=== PATIENT | male | born 1970 | race Caucasian/White ===

== ENCOUNTER 2019-06-30 16:43 | Emergency (ER) | payer OTHER ==
[2019-06-30 17:09] VITALS: BMI 24.2
--- NOTE | 2019-06-30 17:27 | PDOC ---
History of Present Illness - General Chief Complaint: Redness To Affected Area Stated Complaint: INFECTED ABSCESS Time Seen by Provider: 06/30/19 17:01 - History of Present Illness Initial Comments: Mr. Vásquez is a 49 y/o male with PMH significant for ETOH and cocaine abuse, presenting today with swelling and redness over the right lateral wrist that started 3 days ago. Reports that his last drink was this morning and he presented to detox, where the redness and swelling were noted and he was sent to the ED. Denies fever/chills. Denies shortness of breath/chest pain. Denies abdominal pain. Denies urinary symptoms. Denies diarrhea. Reports that he was bitten by a spider several weeks ago and believes that is what caused it. Denies IV drug use. Past History - Past Medical History Allergies/Adverse Reactions: Allergies Allergy/AdvReac Type Severity Reaction Status Date / Time No Known Allergies Allergy Verified 06/30/19 13:32 Home Medications: Ambulatory Orders Methadone [Dolophine -] 90 mg PO DAILY 06/30/19 Anemia: No Asthma: No Cancer: No Cardiac Disorders: No CVA: No COPD: No CHF: No Dementia: No Diabetes: No GI Disorders: No Disorders: No HTN: No Hypercholesterolemia: No Kidney Stones: No Liver Disease: No Seizures: No Thyroid Disease: No - Surgical History Abdominal Surgery: No Appendectomy: No Cardiac Surgery: No Cholecystectomy: No Lung Surgery: No Neurologic Surgery: No Orthopedic Surgery: Yes (fx of right fenur in [address] [facility]) - Reproductive History Testicular Surgery: No - Psycho Social/Smoking Cessation Hx Smoking History: Never smoked Have you smoked in the past 12 months: No Number of Cigarettes Smoked Daily: 20 Information on smoking cessation initiated: No 'Breaking Loose' booklet given: 02/06/12 Hx Alcohol Use: No Drug/Substance Use Hx: No Substance Use Type: Alcohol, Cocaine, Marijuana, Tranquilizers Hx Substance Use Treatment: Yes Review of Systems - Review of Systems Comments:: GENERAL/CONSTITUTIONAL: No fever or chills. No weakness._ HEAD, EYES, EARS, NOSE AND THROAT: No change in vision. No change in hearing. No sore throat._ CARDIOVASCULAR: No chest pain or shortness of breath_ RESPIRATORY: Denies cough, hemoptysis_ GASTROINTESTINAL: No nausea, vomiting, diarrhea or constipation._ GENITOURINARY: No dysuria, frequency, or change in urination._ MUSCULOSKELETAL: Reports swelling over right lateral wrist. No neck or back pain._ SKIN: Reports redness over right lateral wrist. NEUROLOGIC: No headache, vertigo, loss of consciousness, or change in strength/ sensation._ ENDOCRINE: No increased thirst. No abnormal weight change_ HEMATOLOGIC/LYMPHATIC: No anemia, easy bleeding, or history of blood clots._ ALLERGIC/IMMUNOLOGIC: No hives or skin allergy._ *Physical Exam - Vital Signs Last Vital Signs Temp Pulse Resp BP Pulse Ox 98.4 F 60 16 110/57 L 98 06/30/19 16:45 06/30/19 16:45 06/30/19 16:45 06/30/19 16:45 06/30/19 16:45 - Physical Exam GENERAL: Awake, alert, and oriented to person/place/time, in no acute distress_ HEAD: No signs of trauma, normocephalic, atraumatic _ EYES: PERRLA, EOMI, sclera anicteric, conjunctiva clear_ ENT: Hearing grossly normal, nares patent, oropharynx clear without exudates. No uvular deviation. Moist mucosa_ NECK: Normal ROM, supple, no lymphadenopathy, JVD, or masses_ LUNGS: No distress, speaks in full sentences, clear to auscultation bilaterally _ HEART: Regular rate and rhythm, normal S1 and S2, no murmurs appreciated, peripheral pulses normal and equal bilaterally._ ABDOMEN: Soft, nontender, normoactive bowel sounds. No guarding, no rebound. No masses_ EXTREMITIES: 3cm x 2cm area of induration and swelling over the right lateral aspect of wrist with overlying skin redness. No streaking. No bruising. Minimal purulent discharge. Pulses 2+ distally. NEUROLOGICAL: Cranial nerves II through XII grossly intact. Normal speech, normal gait, no focal sensorimotor deficits _ SKIN: Warm, Dry, normal turgor, no rashes. Procedures - Incision and Drainage Volume(ml): 1 Attempts: 2 Progress: Verbal consent were obtained. The indication for the procedure was clinical suspicion for an abscess. Confirmation with an ultrasound was performed. The region was anesthetized with 3 cc of 1% lidocaine. The most fluctuant portion of the abscess was incised with an 11 blade scalpel. The abscess cavity of explored and evacuated. Additionally, a 18 gauge needle was used to drain a fluid pocket, 1 cc of purulent bloody fluid was aspirated. The incision was covered with a clean gauze dressing. Patient tolerated the procedure well. Medical Decision Making - Medical Decision Making 06/30/19 17:20 49M ETOH/cocaine abuse sent in from detox for swelling and redness over right lateral wrist. -I&D 06/30/19 19:30 I&D performed. See procedure note. 05/31/19 20:50 Patient given bactrim. Plan to d/c to [facility] for detox, with Bactrim DS 1 tab BID for 14 days. Patient verbalized understanding and agreement with plan. All questions answered. Discharge - Discharge Information Problems reviewed: Yes Clinical Impression/Diagnosis: Abscess Cellulitis Qualifiers: Site of cellulitis: extremity Site of cellulitis of extremity: upper extremity Laterality: right Qualified Code(s): L03.113 - Cellulitis of right upper limb Condition: Stable Disposition: HOME - Admission No - Follow up/Referral - Patient Discharge Instructions Additional Instructions: Please take Bactrim 1 tab twice per day (total of 2 tabs per day) for 14 days. Please follow up with [facility]. If you experience any new, worsening, or concerning symptoms, including increased swelling or spreading redness of the right wrist, fever, chills, nausea, vomiting, or any other concerns, please return to the emergency department. - Post Discharge Activity
[2019-06-30 18:54] VITALS: TEMP 98.6
[2019-06-30] MEDS ORDERED: SULFAMETHOXAZOLE/TRIMETHOPRIM 800MG/160MG D.S. TABLET PO ONE (20:16)
[2019-06-30] MEDS ORDERED: SULFAMETHOXAZOLE/TRIMETHOPRIM 800MG/160MG D.S. TABLET ONE (20:47)
[2019-06-30 21:53] VITALS: BP 110/79; PULSE 62
--- NOTE | 2019-06-30 22:47 | PDOC ---
Documentation entered by Ronaldo Acevedo SCRIBE, acting as scribe for Carlos Rodrigues MD. Carlos Rodrigues MD: This documentation has been prepared by the Curtis padilla Nirvannie, SCRIBE, under my direction and personally reviewed by me in its entirety. I confirm that the documentation accurately reflects all work, treatment, procedures, and medical decision making performed by me. Attending Attestation - Resident Resident Name: Mehran Alexander - ED Attending Attestation I have performed the following: I have examined & evaluated the patient, The case was reviewed & discussed with the resident, I agree w/resident's findings & plan, Exceptions are as noted - HPI HPI: 06/30/19 18:56 The patient is a 49 year old male, with a significant past medical history of polysubstance abuse (EtOH and cocaine), who presents to the emergency department via EMS from [facility] with, 3 days of erythema and edema to the right lateral wrist. As per patient, he presented for etoh detox at which point the facility noticed his abscess and advised him to report to the ED for further evaluation. Pt reports he noticed a spider bit him 4 last week and thinks this caused an abscess. Does not remember what the spider looked like. Denies IV drug use. He denies any recent fevers, chills, headache or dizziness. He denies any recent nausea, vomit, diarrhea or constipation. He denies any recent chest pain or shortness of breath. He denies any recent dysuria, frequency, urgency or hematuria. Allergies: NKDA - Physicial Exam PE: 06/30/19 22:13 Agree with resident exam - Medical Decision Making 06/30/19 22:13 49-year-old male presents emergency department with abscess to the right wrist with mild surrounding cellulitis. No systemic signs of infection. Incision and drainage performed by Dr. Alexander under my supervision. Using US, fluid collection about 1cm in, thus using 18G, 1cc of purulent fluid was aspirated. Given surrunding mild cellulitis, will start pt on bactrim and send to [facility] for detox at this time. Pt clinically sober, ambulating in he ED with steady gait. I discussed the physical exam findings, ancillary test results and final diagnoses with the patient. I answered all of the patient's questions. The patient was satisfied with the care received and felt comfortable with the discharge plan and treatment plan. The patient will call their primary care physician within 24 hours to arrange follow-up and will return to the Emergency Department with any new, persistent or worsening symptoms. =
== END 2019-06-30 21:51 | disposition home or self-care (01) ==
LOC: JER 16:43
PROC: 0J9G0ZZ Drainage of Right Lower Arm Subcutaneous Tissue and Fascia, Open Approach (ICD-10-PCS; principal; 2019-06-30)
DX: L02.413 Cutaneous abscess of right upper limb (principal); L03.113 Cellulitis of right upper limb; F10.10 Alcohol abuse, uncomplicated; F14.10 Cocaine abuse, uncomplicated; Z59.0 Homelessness
CPT/HCPCS: 10060; 99281-25

== ENCOUNTER 2019-06-30 22:16 | Inpatient (IN) | payer OTHER ==
[2019-06-30 13:36] VITALS: BMI 25.2
--- NOTE | 2019-06-30 22:57 | HP ---
CIWA Score Nausea/Vomitin (VOMITING X 3) Muscle Tremors: 3 Anxiety: 3 Agitation: 3 Paroxysmal Sweats: 2 Orientation: 1-Uncertain about Date Tacttile Disturbances: 0-None Auditory Disturbances: 0-None Visual Disturbances: 0-None Headache: 0-None Present CIWA-Ar Total Score: 15 - Admission Criteria OASAS Guidelines: Admission for Medically Managed Detox: Requires at least one of the followin. CIWA greater than 12 2. Seizures within the past 24 hours 3. Delirium tremens within the past 24 hours 4. Hallucinations within the past 24 hours 5. Acute intervention needed for co occurring medical disorder 6. Acute intervention needed for co occurring psychiatric disorder 7. Severe withdrawal that cannot be handled at a lower level of care (continued vomiting, continued diarrhea, abnormal vital signs) requiring intravenous medication and/or fluids 8. Admitting History and Physical - Smoking History Smoking history: Current every day smoker Have you smoked in the past 12 months: Yes Aproximately how many cigarettes per day: 20 - Alcohol/Substance Use Hx Alcohol Use: Yes Admission ROS [facility] Chief Complaint: Seeking admission to detox Allergies/Adverse Reactions: Allergies Allergy/AdvReac Type Severity Reaction Status Date / Time No Known Allergies Allergy Verified 06/30/19 13:32 History of Present Illness: 49 years old male with a long history of alcohol dependence is seeking admission to detox. patient was transferred to emergency room earlier today to evaluate infected abscess on the right lateral wrist for alleged spider bite. He is status post incision and drainage of the wound with antibiotic order of Bactrim DS 1 tablet oral BID x 14 days sent to [place] Pharmacist to be picked up by the floor he will be admitted to. Patient reports history of Hep. C and depression. He denies suicidal ideation at this time Exam Limitations: Physical Impairment (right hand swelling and pain) - Ebola screening Have you traveled outside of the country in the last 21 days: No (N) Have you had contact with anyone from an Ebola affected area: No Do you have a fever: No - Review of Systems Constitutional: Chills, Loss of Appetite, Malaise, Night Sweats, Changes in sleep EENT: reports: Nose Congestion Respiratory: reports: No Symptoms reported Cardiac: reports: No Symptoms Reported GI: reports: Diarrhea (x 2), Poor Appetite, Poor Fluid Intake, Vomiting, Abdominal cramping : reports: No Symptoms Reported Musculoskeletal: reports: Back Pain, Joint Pain Integumentary: reports: Dryness, Flushing Neuro: reports: Tremors Endocrine: reports: No Symptoms Reported Hematology: reports: No Symptoms Reported Psychiatric: reports: No Sypmtoms Reported, Mood/Affect Appropiate, Orientated x3 Other Systems: Reviewed and Negative Patient History - Patient Medical History Hx Anemia: No Hx Asthma: No Hx Chronic Obstructive Pulmonary Disease (COPD): No Hx Cancer: No Hx Cardiac Disorders: No Hx Congestive Heart Failure: No Hx Hypertension: No Hx Hypercholesterolemia: No Hx Pacemaker: No HX Cerebrovascular Accident: No Hx Seizures: No Hx Dementia: No Hx Diabetes: No Hx Gastrointestinal Disorders: No Hx Liver Disease: Yes (HEP. C) Hx Genitourinary Disorders: No Hx Sexually Transmitted Disorders: No Hx Renal Disease (ESRD): No Hx Thyroid Disease: No Hx Human Immunodeficiency Virus (HIV): No (Negative 2018) Hx Hepatitis C: Yes (Not treated) Hx Depression: Yes Hx Suicide Attempt: Yes (Attempt in 2009 by hang self, denies suicidal ideation at this time) Hx Bipolar Disorder: No Hx Schizophrenia: No - Patient Surgical History Past Surgical History: Yes Hx Neurologic Surgery: No Hx Cataract Extraction: No Hx Cardiac Surgery: No Hx Lung Surgery: No Hx Breast Surgery: No Hx Breast Biopsy: No Hx Abdominal Surgery: No Hx Appendectomy: No Hx Cholecystectomy: No Hx Genitourinary Surgery: No Hx Section: No Hx Orthopedic Surgery: Yes (fx of right fenur in 2001 at [facility]) Anesthesia Reaction: No - PPD History Previous Implant?: Yes Documented Results: Negative w/proof Date: 02/08/12 PPD to be Administered?: Yes - Reproductive History Patient is a Female of Child Bearing Age (11 -55 yrs old): No (male) - Smoking Cessation Smoking history: Current every day smoker Have you smoked in the past 12 months: Yes Aproximately how many cigarettes per day: 20 Hx Chewing Tobacco Use: No Initiated information on smoking cessation: Yes 'Breaking Loose' booklet given: 06/30/19 - Substance & Tx. History Hx Alcohol Use: Yes Hx Substance Use: No Substance Use Type: Alcohol, Cocaine Hx Substance Use Treatment: Yes - Substances abused Alcohol Substance route: Oral Frequency: Daily Amount used: vodka- 2pts Age of first use: 10 Date of last use: 06/28/19 Crack Substance route: Smoking Frequency: Daily Amount used: $60 Age of first use: 10 Date of last use: 06/29/19 Admission Physical Exam [facility] - Vital Signs Vital Signs: Vital Signs - 24 hr 06/30/19 13:23 Temperature 98.4 F Pulse Rate 60 Respiratory 18 Rate Blood Pressure 106/57 L - Physical General Appearance: Yes: Within Normal Limits HEENTM: Yes: EOMI, Normal ENT Inspection, Normocephalic, Normal Voice, NAVYA Respiratory: Yes: Lungs Clear, Normal Breath Sounds, No Respiratory Distress Neck: Yes: Within Normal Limits Breast: Yes: Breast Exam Deferred Cardiology: Yes: Regular Rhythm, Regular Rate Abdominal: Yes: Normal Bowel Sounds, Soft Genitourinary: Yes: Within Normal Limits Back: Yes: Normal Inspection Musculoskeletal: Yes: Within Normal Limits Extremities: Yes: Tremors (mild) Neurological: Yes: Within Normal Limits Integumentary: Yes: Warm Lymphatic: Yes: Within Normal Limits - Diagnostic (1) Abscess of right arm Current Visit: Yes Status: Acute (2) Hep C w/o coma, chronic Current Visit: Yes Status: Chronic (3) Methadone maintenance therapy patient Current Visit: Yes Status: Chronic (4) depression Current Visit: Yes Status: Chronic Cleared for Admission [facility] - Detox or Rehab [facility] Level of Care: Medically Managed Detox Regimen/Protocol: Valium Breathalyzer - Breathalyzer Breathalyzer: 0 Urine Drug Screen - Test Device Lot number: [id number] Expiration date: 02/22/21 - Control Is test valid?: Yes - Results Drug screen NEGATIVE: No Urine drug screen results: BARBARA-Cocaine, MTD-Methadone Inpatient Rehab Admission - Rehab Decision to Admit Inpatient rehab admission?: No
[2019-06-30] MEDS ORDERED: MAG HYDROX/AL HYDROX/SIMETH 30 ML UNIT-DOSE CUP PO PRN (23:05)
[2019-06-30] MEDS ORDERED: MAGNESIUM HYDROX 2400MG/30ML ORAL SUSPENSION 30 ML CUP PO PRN (23:05)
[2019-06-30] MEDS ORDERED: MENTHOL/PHENOL 1 EACH UD MM PRN (23:05)
[2019-06-30] MEDS ORDERED: BISMUTH SUBSALICYLATE 524 MG/30 ML UD PO PRN (23:05)
[2019-06-30] MEDS ORDERED: ACETAMINOPHEN 325 MG TABLET (FP) PO PRN ×2 (23:05)
[2019-06-30] MEDS ORDERED: hydrOXYzine PAMOATE 25 MG CAPSULE (FP) PO PRN (23:05)
[2019-06-30] MEDS ORDERED: MAGNESIUM CITRATE 300 ML BOTTLE PO PRN (23:05)
[2019-06-30] MEDS ORDERED: METHOCARBAMOL 500 MG TABLET PO PRN (23:05)
[2019-06-30] MEDS ORDERED: IBUPROFEN 400 MG TABLET (FP) PO PRN (23:05)
[2019-06-30] MEDS ORDERED: diazePAM 5 MG TABLET PO PRN (23:05)
[2019-06-30] MEDS ORDERED: NICOTINE POLACRILEX 2 MG GUM BUC PRN (23:05)
[2019-07-01] MEDS: diazePAM 5 MG TABLET PO SCH ×4 (00:54→22:17)
[2019-07-01] MEDS ORDERED: METHADONE HCL 10 MG TABLET PO SCH (10:00)
[2019-07-01 10:38] LABS: HEMATOCRIT 39.3 % (35.4-49); HEMOGLOBIN 13.2 GM/dL (11.7-16.9); MCH 30.8 pg (25.7-33.7); MCHC 33.6 g/dl (32.0-35.9); MEAN CELL VOLUME 91.6 fl (80-96); MEAN PLT VOLUME 9.1 fl (7.5-11.1); PLATELET COUNT 231 K/MM3 (134-434); RBC 4.29 M/mm3 (4.00-5.60); RDW 14.4 % (11.9-15.9); WHITE BLOOD COUNT 4.2 K/mm3 (4.0-10.0)
[2019-07-01 10:51] LABS: ALBUMIN 2.9 g/dl (3.4-5.0); BILIRUBIN,TOTAL 0.2 mg/dL (0.2-1); BLOOD UREA NITROGEN 9.7 mg/dL (7-18); CALCIUM 8.7 mg/dL (8.5-10.1); CREATININE 0.8 mg/dL (0.55-1.3); POTASSIUM 4.3 mmol/L (3.5-5.1); TOT PROT 6.1 g/dl (6.4-8.2)
[2019-07-01] MEDS ORDERED: METHADONE HCL 10 MG TABLET ONE (11:12)
[2019-07-01] MEDS ORDERED: METHADONE HCL 40 MG DISPERSABLE TABLET ONE (11:13)
[2019-07-01] MEDS: PRENATAL VITAMINS W/ FOLIC ACID TABLET (FP) PO SCH (11:14)
[2019-07-01] MEDS: METHADONE 80 MG, METHADONE 10 MG PO SCH (11:14)
[2019-07-01] MEDS: NICOTINE 14 MG/24 HOURS TOPICAL PATCH TD SCH (11:14)
--- NOTE | 2019-07-01 12:24 | PN ---
S CIWA - CIWA Score Nausea/Vomitin-No Nausea/No Vomiting Muscle Tremors: None Anxiety: 3 Agitation: 0-Normal Activity Paroxysmal Sweats: 3 Orientation: 0-Oriented Tacttile Disturbances: 0-None Auditory Disturbances: 0-None Visual Disturbances: 0-None Headache: 2-Mild CIWA-Ar Total Score: 8 [facility] Progress Note (SOAP) Subjective: c/o sweats, anxiety, and headache. Objective: 07/01/19 12:23 Vital Signs 07/01/19 07/01/19 07:08 09:18 Temperature 97.7 F 97.7 F Pulse Rate 53 L 75 Respiratory 16 16 Rate Blood Pressure 105/59 L 109/59 L Laboratory Last Values WBC 4.2 K/mm3 (4.0-10.0) 07/01/19 07:40 RBC 4.29 M/mm3 (4.00-5.60) 07/01/19 07:40 Hgb 13.2 GM/dL (11.7-16.9) 07/01/19 07:40 Hct 39.3 % (35.4-49) 07/01/19 07:40 MCV 91.6 fl (80-96) 07/01/19 07:40 MCH 30.8 pg (25.7-33.7) 07/01/19 07:40 MCHC 33.6 g/dl (32.0-35.9) 07/01/19 07:40 RDW 14.4 % (11.9-15.9) D 07/01/19 07:40 Plt Count 231 K/MM3 (134-434) 07/01/19 07:40 MPV 9.1 fl (7.5-11.1) 07/01/19 07:40 Sodium 143 mmol/L (136-145) 07/01/19 07:40 Potassium 4.3 mmol/L (3.5-5.1) 07/01/19 07:40 Chloride 109 mmol/L (98-107) H 07/01/19 07:40 Carbon Dioxide 28 mmol/L (21-32) 07/01/19 07:40 Anion Gap 6 MMOL/L (8-16) L 07/01/19 07:40 BUN 9.7 mg/dL (7-18) 07/01/19 07:40 Creatinine 0.8 mg/dL (0.55-1.3) 07/01/19 07:40 Est GFR (CKD-EPI)AfAm 120.72 07/01/19 07:40 Est GFR (CKD-EPI)NonAf 104.16 07/01/19 07:40 Random Glucose 73 mg/dL (74-106) L 07/01/19 07:40 Calcium 8.7 mg/dL (8.5-10.1) 07/01/19 07:40 Total Bilirubin 0.2 mg/dL (0.2-1) 07/01/19 07:40 AST 50 U/L (15-37) H 07/01/19 07:40 ALT 50 U/L (13-61) 07/01/19 07:40 Alkaline Phosphatase 70 U/L (45-117) 07/01/19 07:40 Total Protein 6.1 g/dl (6.4-8.2) L 07/01/19 07:40 Albumin 2.9 g/dl (3.4-5.0) L 07/01/19 07:40 RPR Titer Nonreactive (NONREACTIVE) 07/01/19 07:40 Labs noted. Assessment: 07/01/19 12:24 AOX3, in no acute respiratory distress. Full ROM, ambulating in the unit. Withdrawal symptoms. Plan: continue detox.
[2019-07-01] MEDS: MELATONIN 5 MG TABLETS PO PRN (22:17)
[2019-07-01] MEDS: THIAMINE HCL 100 MG TABLET (FP) PO SCH (22:17)
--- NOTE | 2019-07-01 23:26 | EKG ---
Test Reason : Blood Pressure : / mmHG Vent. Rate : 049 BPM Atrial Rate : 049 BPM P-R Int : 146 ms QRS Dur : 086 ms QT Int : 484 ms P-R-T Axes : 057 067 061 degrees QTc Int : 437 ms SINUS BRADYCARDIA OTHERWISE NORMAL ECG NO PREVIOUS ECGS AVAILABLE Confirmed by FENG PATEL MD ([id number]) on 07/01/2019 11:26:34 PM Referred By: Confirmed By:FENG PATEL MD
[2019-07-02] MEDS ORDERED: METHADONE HCL 40 MG DISPERSABLE TABLET ONE (04:56)
[2019-07-02] MEDS ORDERED: METHADONE HCL 10 MG TABLET ONE (04:56)
[2019-07-02] MEDS: diazePAM 5 MG TABLET PO SCH ×2 (05:45→18:08)
[2019-07-02] MEDS: METHADONE 80 MG, METHADONE 10 MG PO SCH (05:45)
[2019-07-02] MEDS: NICOTINE 14 MG/24 HOURS TOPICAL PATCH TD SCH (10:20)
[2019-07-02] MEDS: PRENATAL VITAMINS W/ FOLIC ACID TABLET (FP) PO SCH (10:20)
[2019-07-02] MEDS: SULFAMETHOXAZOLE/TRIMETHOPRIM 800MG/160MG D.S. TABLET PO SCH ×2 (11:12→22:16)
--- NOTE | 2019-07-02 11:30 | PN ---
S CIWA - CIWA Score Nausea/Vomitin-No Nausea/No Vomiting Muscle Tremors: 2 Anxiety: 1-Mildly Anxious Agitation: 0-Normal Activity Paroxysmal Sweats: 1-Minimal Palms Moist Orientation: 0-Oriented Tacttile Disturbances: 0-None Auditory Disturbances: 0-None Visual Disturbances: 0-None Headache: 0-None Present CIWA-Ar Total Score: 4 BHS Progress Note (SOAP) Subjective: 49 years old male admitted on 06/30/19 for alcohol withdrawal sx management treated with valium detox regimen feeling better today less tremor slept through the night Objective: 07/02/19 11:34 Vital Signs Temperature 97.9 F 07/02/19 09:08 Pulse Rate 79 07/02/19 09:08 Respiratory Rate 16 07/02/19 09:08 Blood Pressure 116/66 07/02/19 09:08 O2 Sat by Pulse Oximetry (%) Laboratory Last Values WBC 4.2 K/mm3 (4.0-10.0) 07/01/19 07:40 RBC 4.29 M/mm3 (4.00-5.60) 07/01/19 07:40 Hgb 13.2 GM/dL (11.7-16.9) 07/01/19 07:40 Hct 39.3 % (35.4-49) 07/01/19 07:40 MCV 91.6 fl (80-96) 07/01/19 07:40 MCH 30.8 pg (25.7-33.7) 07/01/19 07:40 MCHC 33.6 g/dl (32.0-35.9) 07/01/19 07:40 RDW 14.4 % (11.9-15.9) D 07/01/19 07:40 Plt Count 231 K/MM3 (134-434) 07/01/19 07:40 MPV 9.1 fl (7.5-11.1) 07/01/19 07:40 Sodium 143 mmol/L (136-145) 07/01/19 07:40 Potassium 4.3 mmol/L (3.5-5.1) 07/01/19 07:40 Chloride 109 mmol/L (98-107) H 07/01/19 07:40 Carbon Dioxide 28 mmol/L (21-32) 07/01/19 07:40 Anion Gap 6 MMOL/L (8-16) L 07/01/19 07:40 BUN 9.7 mg/dL (7-18) 07/01/19 07:40 Creatinine 0.8 mg/dL (0.55-1.3) 07/01/19 07:40 Est GFR (CKD-EPI)AfAm 120.72 07/01/19 07:40 Est GFR (CKD-EPI)NonAf 104.16 07/01/19 07:40 Random Glucose 73 mg/dL (74-106) L 07/01/19 07:40 Calcium 8.7 mg/dL (8.5-10.1) 07/01/19 07:40 Total Bilirubin 0.2 mg/dL (0.2-1) 07/01/19 07:40 AST 50 U/L (15-37) H 07/01/19 07:40 ALT 50 U/L (13-61) 07/01/19 07:40 Alkaline Phosphatase 70 U/L (45-117) 07/01/19 07:40 Total Protein 6.1 g/dl (6.4-8.2) L 07/01/19 07:40 Albumin 2.9 g/dl (3.4-5.0) L 07/01/19 07:40 RPR Titer Nonreactive (NONREACTIVE) 07/01/19 07:40 lab noted Assessment: 07/02/19 11:34 alcohol withdrawal sx Plan: continue valium detox regimen
[2019-07-02] MEDS: THIAMINE HCL 100 MG TABLET (FP) PO SCH (22:16)
[2019-07-02] MEDS: MELATONIN 5 MG TABLETS PO PRN (22:17)
[2019-07-03] MEDS ORDERED: METHADONE HCL 10 MG TABLET ONE (04:39)
[2019-07-03] MEDS ORDERED: METHADONE HCL 40 MG DISPERSABLE TABLET ONE (04:39)
[2019-07-03] MEDS: METHADONE 80 MG, METHADONE 10 MG PO SCH (05:11)
[2019-07-03] MEDS ORDERED: diazePAM 5 MG TABLET PO ONE (06:00)
[2019-07-03 09:08] VITALS: BP 90/56; PULSE 86; TEMP 99
[2019-07-03] MEDS: SULFAMETHOXAZOLE/TRIMETHOPRIM 800MG/160MG D.S. TABLET PO SCH (10:30)
[2019-07-03] MEDS: NICOTINE 14 MG/24 HOURS TOPICAL PATCH TD SCH (10:30)
[2019-07-03] MEDS: PRENATAL VITAMINS W/ FOLIC ACID TABLET (FP) PO SCH (10:32)
--- NOTE | 2019-07-03 11:49 | DS ---
[facility] Detox Discharge Summary Admission Date: 06/30/19 Discharge Date: 07/03/19 - History Present History: Alcohol Dependence Additional Comments: 49 years old male admitted on 06/30/19 for alcohol withdrawal sx management treated with valium detox regimen patient tolerated well alert oriented x 3 cardiac s1s2 regular rate rhythm abdomen soft no rebound tenderness skin warm and dry Pertinent Past History: spider bit abscess drained bactrim ds bid x 14 days begin 07/02/19 as per ER I&D - Physical Exam Results Vital Signs: Vital Signs Temperature 99.0 F 07/03/19 09:07 Pulse Rate 86 07/03/19 09:07 Respiratory Rate 16 07/03/19 09:07 Blood Pressure 90/56 L 07/03/19 09:07 O2 Sat by Pulse Oximetry (%) Pertinent Admission Physical Exam Findings: alcohol withdrawal sx Laboratory Last Values WBC 4.2 K/mm3 (4.0-10.0) 07/01/19 07:40 RBC 4.29 M/mm3 (4.00-5.60) 07/01/19 07:40 Hgb 13.2 GM/dL (11.7-16.9) 07/01/19 07:40 Hct 39.3 % (35.4-49) 07/01/19 07:40 MCV 91.6 fl (80-96) 07/01/19 07:40 MCH 30.8 pg (25.7-33.7) 07/01/19 07:40 MCHC 33.6 g/dl (32.0-35.9) 07/01/19 07:40 RDW 14.4 % (11.9-15.9) D 07/01/19 07:40 Plt Count 231 K/MM3 (134-434) 07/01/19 07:40 MPV 9.1 fl (7.5-11.1) 07/01/19 07:40 Sodium 143 mmol/L (136-145) 07/01/19 07:40 Potassium 4.3 mmol/L (3.5-5.1) 07/01/19 07:40 Chloride 109 mmol/L (98-107) H 07/01/19 07:40 Carbon Dioxide 28 mmol/L (21-32) 07/01/19 07:40 Anion Gap 6 MMOL/L (8-16) L 07/01/19 07:40 BUN 9.7 mg/dL (7-18) 07/01/19 07:40 Creatinine 0.8 mg/dL (0.55-1.3) 07/01/19 07:40 Est GFR (CKD-EPI)AfAm 120.72 07/01/19 07:40 Est GFR (CKD-EPI)NonAf 104.16 07/01/19 07:40 Random Glucose 73 mg/dL (74-106) L 07/01/19 07:40 Calcium 8.7 mg/dL (8.5-10.1) 07/01/19 07:40 Total Bilirubin 0.2 mg/dL (0.2-1) 07/01/19 07:40 AST 50 U/L (15-37) H 07/01/19 07:40 ALT 50 U/L (13-61) 07/01/19 07:40 Alkaline Phosphatase 70 U/L (45-117) 07/01/19 07:40 Total Protein 6.1 g/dl (6.4-8.2) L 07/01/19 07:40 Albumin 2.9 g/dl (3.4-5.0) L 07/01/19 07:40 RPR Titer Nonreactive (NONREACTIVE) 07/01/19 07:40 lab noted - Treatment Hospital Course: Detox Protocol Followed, Detoxed Safely, Responded well, Discharged Condition Good, Rehab Referral Accepted Patient has Accepted [facility] Referral [facility] - Medication Discharge Medications: Ambulatory Orders Methadone [Dolophine -] 90 mg PO DAILY 06/30/19 - Diagnosis (1) Abscess of right arm Current Visit: Yes Status: Acute (2) Hep C w/o coma, chronic Current Visit: Yes Status: Chronic (3) Methadone maintenance therapy patient Current Visit: Yes Status: Chronic (4) Alcohol dependence Current Visit: Yes Status: Active - AMA Did Patient Leave Against Medical Advice: No CIWA Score - CIWA Score Nausea/Vomitin-No Nausea/No Vomiting Muscle Tremors: 1-None Visible, but [place] Anxiety: 1-Mildly Anxious Agitation: 0-Normal Activity Paroxysmal Sweats: No Perspiration Orientation: 0-Oriented Tacttile Disturbances: 0-None Auditory Disturbances: 0-None Visual Disturbances: 0-None Headache: 0-None Present CIWA-Ar Total Score: 2
== END 2019-07-03 12:15 | disposition other institution (70) | DRG 897 ==
LOC: YASAS 22:16 → Y3N 23:21
PROVIDERS: ADMIT Allergy & Immunology; ATTEND Allergy & Immunology
PROC: HZ2ZZZZ Detoxification Services for Substance Abuse Treatment (ICD-10-PCS; principal; 2019-06-30)
DX: F10.230 Alcohol dependence with withdrawal, uncomplicated (principal); F11.20 Opioid dependence, uncomplicated; L02.413 Cutaneous abscess of right upper limb; F17.210 Nicotine dependence, cigarettes, uncomplicated; F32.9 Major depressive disorder, single episode, unspecified; B18.2 Chronic viral hepatitis C; Z91.5 Personal history of self-harm; Z59.0 Homelessness
CPT/HCPCS: 36415; 80053; 85027; 86593; 93005; 93010

== ENCOUNTER 2019-07-03 12:53 | Inpatient (IN) | payer OTHER ==
--- NOTE | 2019-07-03 11:57 | HP ---
[facility] Rehab Assess/Revision - Admission History Admitted to Rehab from: [facility] Date of Admission to Rehab: 07/03/19 - Findings Detox History & Physical reviewed: Yes Concur with findings: Yes Comments/Additional Findings: transferred from detox to rehab admission as per protocol Inpatient Rehab Admission - Rehab Decision to Admit Inpatient rehab admission?: Yes - Initial Determination Are CD services needed?: Yes Free of communicable disease: Yes Not in need of hospitalization: Yes - Rehab Admission Criteria Previous failed treatment: Yes Poor recovery environment: Yes Comorbidities: Yes Lacks judgement: Yes Patient is meeting Inpatient Rehab admission criteria:: Yes
[~2019-07-03 12:53] MED LIST: ACETAMINOPHEN 325 MG TABLET (FP) PO PRN; IBUPROFEN 400 MG TABLET (FP) PO PRN; LOPERAMIDE HCL 2 MG CAPSULE PO PRN; MAG HYDROX/AL HYDROX/SIMETH 30 ML UNIT-DOSE CUP PO PRN; MAGNESIUM CITRATE 300 ML BOTTLE PO PRN; MAGNESIUM HYDROX 2400MG/30ML ORAL SUSPENSION 30 ML CUP PO PRN; MENTHOL/PHENOL 1 EACH UD MM PRN; NICOTINE POLACRILEX 2 MG GUM BC PRN; P-EPHED 60MG/TRIPROLIDI 2.5MG TABLET PO PRN; guaiFENesin 200 MG/10 ML 10 ML UNIT-DOSE CUPS PO PRN
--- NOTE | 2019-07-03 13:30 | PN ---
S Progress Note Note: 49 years old male with a long history of alcohol dependence. Patient was transferred to emergency room prior to admission to [facility] for infected abscess on the right lateral wrist for alleged spider bite. He is status post incision and drainage of the wound with antibiotic order of Bactrim. PMH includes Hep C and depression. Reports using cane for ambulation support. ROS: denies headache, shakes, sweating and chills. PE: alert and oriented x 3 skin warm and dry ext no visible swelling, right wrist abscess mildly reddened but healing, full rom of all extremities. amb ad myrna A/P: alcohol dependence admitted to rehab
[2019-07-03] MEDS: THIAMINE HCL 100 MG TABLET (FP) PO SCH (21:29)
[2019-07-03] MEDS: MELATONIN 5 MG TABLETS PO PRN (21:29)
[2019-07-03] MEDS: SULFAMETHOXAZOLE/TRIMETHOPRIM 800MG/160MG D.S. TABLET PO SCH (21:30)
[2019-07-04] MEDS ORDERED: METHADONE HCL 10 MG TABLET ONE (05:30)
[2019-07-04] MEDS ORDERED: METHADONE HCL 40 MG DISPERSABLE TABLET ONE (05:30)
[2019-07-04] MEDS: METHADONE 80 MG, METHADONE 10 MG PO SCH (06:11)
[2019-07-04] MEDS: PRENATAL VITAMINS W/ FOLIC ACID TABLET (FP) PO SCH (09:44)
[2019-07-04] MEDS: NICOTINE 14 MG/24 HOURS TOPICAL PATCH TD SCH (09:44)
[2019-07-04] MEDS: SULFAMETHOXAZOLE/TRIMETHOPRIM 800MG/160MG D.S. TABLET PO SCH ×2 (09:44→21:39)
[2019-07-04] MEDS ORDERED: METHADONE HCL 40 MG DISPERSABLE TABLET PO SCH (10:00)
[2019-07-04] MEDS: MELATONIN 5 MG TABLETS PO PRN (21:40)
[2019-07-04] MEDS: THIAMINE HCL 100 MG TABLET (FP) PO SCH (21:40)
[2019-07-05] MEDS ORDERED: METHADONE HCL 10 MG TABLET ONE (05:54)
[2019-07-05] MEDS ORDERED: METHADONE HCL 40 MG DISPERSABLE TABLET ONE (05:54)
[2019-07-05] MEDS: METHADONE 80 MG, METHADONE 10 MG PO SCH (06:26)
[2019-07-05] MEDS: NICOTINE 14 MG/24 HOURS TOPICAL PATCH TD SCH (09:45)
[2019-07-05] MEDS: SULFAMETHOXAZOLE/TRIMETHOPRIM 800MG/160MG D.S. TABLET PO SCH ×2 (09:45→21:35)
[2019-07-05] MEDS: PRENATAL VITAMINS W/ FOLIC ACID TABLET (FP) PO SCH (09:45)
[2019-07-05] MEDS: MELATONIN 5 MG TABLETS PO PRN (21:35)
[2019-07-05] MEDS: THIAMINE HCL 100 MG TABLET (FP) PO SCH (21:35)
[2019-07-06] MEDS ORDERED: METHADONE HCL 40 MG DISPERSABLE TABLET ONE (05:32)
[2019-07-06] MEDS ORDERED: METHADONE HCL 10 MG TABLET ONE (05:32)
[2019-07-06] MEDS: METHADONE 80 MG, METHADONE 10 MG PO SCH (05:47)
[2019-07-06] MEDS: SULFAMETHOXAZOLE/TRIMETHOPRIM 800MG/160MG D.S. TABLET PO SCH ×2 (10:18→22:07)
[2019-07-06] MEDS: PRENATAL VITAMINS W/ FOLIC ACID TABLET (FP) PO SCH (10:18)
[2019-07-06] MEDS: NICOTINE 14 MG/24 HOURS TOPICAL PATCH TD SCH (10:19)
[2019-07-06] MEDS: MELATONIN 5 MG TABLETS PO PRN (22:07)
[2019-07-06] MEDS: THIAMINE HCL 100 MG TABLET (FP) PO SCH (22:07)
[2019-07-07] MEDS ORDERED: METHADONE HCL 10 MG TABLET ONE (05:30)
[2019-07-07] MEDS ORDERED: METHADONE HCL 40 MG DISPERSABLE TABLET ONE (05:30)
[2019-07-07] MEDS: METHADONE 80 MG, METHADONE 10 MG PO SCH (06:10)
[2019-07-07] MEDS: SULFAMETHOXAZOLE/TRIMETHOPRIM 800MG/160MG D.S. TABLET PO SCH ×2 (10:05→21:28)
[2019-07-07] MEDS: PRENATAL VITAMINS W/ FOLIC ACID TABLET (FP) PO SCH (10:05)
[2019-07-07] MEDS: NICOTINE 14 MG/24 HOURS TOPICAL PATCH TD SCH (10:05)
[2019-07-07] MEDS: THIAMINE HCL 100 MG TABLET (FP) PO SCH (21:28)
[2019-07-07] MEDS: MELATONIN 5 MG TABLETS PO PRN (21:28)
[2019-07-08] MEDS ORDERED: METHADONE HCL 40 MG DISPERSABLE TABLET ONE (05:55)
[2019-07-08] MEDS ORDERED: METHADONE HCL 10 MG TABLET ONE (05:55)
[2019-07-08] MEDS: METHADONE 80 MG, METHADONE 10 MG PO SCH (06:05)
[2019-07-08] MEDS: NICOTINE 14 MG/24 HOURS TOPICAL PATCH TD SCH (09:34)
[2019-07-08] MEDS: SULFAMETHOXAZOLE/TRIMETHOPRIM 800MG/160MG D.S. TABLET PO SCH ×2 (09:34→21:16)
[2019-07-08] MEDS: PRENATAL VITAMINS W/ FOLIC ACID TABLET (FP) PO SCH (09:34)
[2019-07-08] MEDS: MELATONIN 5 MG TABLETS PO PRN (21:16)
[2019-07-08] MEDS: THIAMINE HCL 100 MG TABLET (FP) PO SCH (21:17)
[2019-07-09] MEDS ORDERED: METHADONE HCL 10 MG TABLET ONE (05:50)
[2019-07-09] MEDS ORDERED: METHADONE HCL 40 MG DISPERSABLE TABLET ONE (05:50)
[2019-07-09] MEDS: METHADONE 80 MG, METHADONE 10 MG PO SCH (06:34)
[2019-07-09 06:59] VITALS: BP 94/59; PULSE 60; TEMP 98.1
[2019-07-09] MEDS: NICOTINE 14 MG/24 HOURS TOPICAL PATCH TD SCH (09:28)
[2019-07-09] MEDS: SULFAMETHOXAZOLE/TRIMETHOPRIM 800MG/160MG D.S. TABLET PO SCH (09:28)
[2019-07-09] MEDS: PRENATAL VITAMINS W/ FOLIC ACID TABLET (FP) PO SCH (09:28)
--- NOTE | 2019-07-09 14:06 | DS ---
[facility] Rehab Discharge Summary - [facility] Rehab Discharge Summary Admission Date: 07/03/19 Discharge Date: 07/09/19 - History Present History: Alcohol dependence, MMTP, Sedative dependence Additional Comments: Patient stable . Completed rehab. Follow up with primary care provider in one week. Follow up with methadone treatment program 07/10/19. - Discharge Physical Exam Vital Signs: Vital Signs Temperature 98.1 F 07/09/19 06:58 Pulse Rate 60 07/09/19 06:58 Respiratory Rate 18 07/09/19 06:58 Blood Pressure 94/59 L 07/09/19 06:58 O2 Sat by Pulse Oximetry (%) Pertinent Admission Physical Exam Findings: Vital Signs Temperature 98.1 F 07/09/19 06:58 Pulse Rate 60 07/09/19 06:58 Respiratory Rate 18 07/09/19 06:58 Blood Pressure 94/59 L 07/09/19 06:58 O2 Sat by Pulse Oximetry (%) - Treatment Discharge Condition: Discharge condition good - Medication Discharge Medications: Ambulatory Orders Methadone [Dolophine -] 90 mg PO DAILY 06/30/19 Sulfamethoxazole/Trimethoprim [Bactrim DS -] 1 each PO BID #14 tablet 07/09/19 - Discharge Instructions Diet, activity, other medical instructions: Diet: Activity: Other medical instructions: - Diagnosis (1) Alcohol dependence Current Visit: Yes Status: Active (2) Cocaine dependence Current Visit: Yes Status: Active (3) Sedative dependence Current Visit: Yes Status: Active (4) marijuana dependence Current Visit: Yes Status: Active (5) methadone maintennence Current Visit: Yes Status: Active (6) Abscess of right arm Current Visit: Yes Status: Acute (7) Hep C w/o coma, chronic Current Visit: Yes Status: Chronic - AMA Did Patient Leave Against Medical Advice: No
== END 2019-07-09 14:05 | disposition home or self-care (01) | DRG 895 ==
LOC: YASAS 12:53 → Y3W 12:54
PROVIDERS: ADMIT Neuromusculoskeletal Medicine & OMM; ATTEND Neuromusculoskeletal Medicine & OMM
PROC: HZ42ZZZ Group Counseling for Substance Abuse Treatment, Cognitive-Behavioral (ICD-10-PCS; principal; 2019-07-03)
DX: F10.20 Alcohol dependence, uncomplicated (principal); F11.20 Opioid dependence, uncomplicated; F13.20 Sedative, hypnotic or anxiolytic dependence, uncomplicated; F14.20 Cocaine dependence, uncomplicated; L02.413 Cutaneous abscess of right upper limb; F12.20 Cannabis dependence, uncomplicated; F17.210 Nicotine dependence, cigarettes, uncomplicated; B18.2 Chronic viral hepatitis C; Z91.5 Personal history of self-harm; Z59.0 Homelessness